=== PATIENT | female | born 1945 | race Caucasian/White ===

== ENCOUNTER → 2016-10-06 | Outpatient (CLI) | payer MEDICARE, BC ==
--- NOTE | 2016-10-06 15:10 | RADRPT ---
PROCEDURE: Right knee radiographs. CLINICAL INDICATION: Right knee pain. TECHNIQUE: Four views. Weight bearing. Frontal, lateral, oblique, and patellar view. COMPARISON: No prior studies are available for comparison. FINDINGS: There is no fracture or dislocation. There is a small joint effusion. There are degenerative changes with osteophytes arising from all 3 joint compartment margins. There is medial joint compartment narrowing, mild deformity, and subarticular sclerosis. The appearance i s worse than seen previously. There is no lytic or blastic lesion. There is no radiopaque foreign body. IMPRESSION: 1. Small joint effusion. 2. Moderate to severe degenerative change, worse than seen previously. 3. No other change from 06/08/2013. RPTAT: QQ .Jose Cruz Rangel MD, MD Date Time Electronically viewed and signed by .Jose Cruz Rangel MD, on 10/06/2016 15:10 .R/
== END | disposition home or self-care (01) ==
LOC: HKI 11:07
PROVIDERS: ATTEND Orthopaedic Surgery
DX: M25.561 Pain in right knee (principal); M17.11 Unilateral primary osteoarthritis, right knee
CPT/HCPCS: 73564; G0463

== ENCOUNTER → 2016-12-08 | Outpatient (CLI) | payer MEDICARE, BC ==
[~2016-12-08] MED LIST: ASPI325T32 PO; GLIM4TAB PO; LEVO25TA50 PO; METF500T4 PO; PANT40TA4 PO; PRAV40TA76 PO; PRED1TAB2 PO; PREG50CA PO; TRAM50TA2 PO
--- NOTE | 2016-12-13 16:58 | RADRPT ---
PROCEDURE: Limited x-ray of both lower extremities. CLINICAL INDICATION: Bilateral leg pain. TECHNIQUE: Single frontal view of both lower extremities was obtained from the hips to the calves. COMPARISON: None. FINDINGS: There are mild degenerative changes of both hips with osteophytes noted. There are moderate to anna re degenerative changes of the right knee with joint space narrowing, osteophytes, and subarticular sclerosis. There are mild degenerative changes of the left knee. IMPRESSION: 1. Degenerative changes of the hips and knees as described above. RPTAT: QQ .Jose Cruz Rangel MD, MD Date Time Electronically viewed and signed by .Jose Cruz Rangel MD, MD on 12/13/2016 16:57 .R/
== END | disposition home or self-care (01) ==
LOC: HKI 09:53
PROVIDERS: ATTEND Orthopaedic Surgery
DX: M17.11 Unilateral primary osteoarthritis, right knee (principal)
CPT/HCPCS: 77073; G0463

== ENCOUNTER 2016-12-14 10:13 | Inpatient (IN) | payer MEDICARE, BC ==
[2016-12-14] VITALS (25 sets, daily range): BP systolic 117–149; BP diastolic 50–79; PULSE 61–90; RESP 7–21; Ht 165.1 cm; Wt 75.0 kg
[~2016-12-14] VITALS: Ht 165.1 cm; Wt 75.0 kg
[~2016-12-14 10:13] MED LIST changes: -ASPI325T32 PO; +ETOMIDATE 20 MG INJ ONE; -GLIM4TAB PO; -LEVO25TA50 PO; -METF500T4 PO; -PANT40TA4 PO; -PRAV40TA76 PO; -PRED1TAB2 PO; -PREG50CA PO; +PROPOFOL 1000 MG INJ ONE; -TRAM50TA2 PO
[2016-12-14] MEDS ORDERED: GLIM4TAB PO (10:51)
[2016-12-14] MEDS ORDERED: LEVO25TA50 PO (10:51)
[2016-12-14] MEDS ORDERED: PRED1TAB2 PO (10:52)
[2016-12-14] MEDS ORDERED: METF500T4 PO (10:53)
[2016-12-14] MEDS ORDERED: PRAV40TA76 PO (10:54)
[2016-12-14] MEDS ORDERED: ONDANSETRON 4 MG INJ IV STA (11:22)
[2016-12-14] MEDS ORDERED: CEFAZOLIN 2GM/50 ML (PMX) 50 ML X1 BEFORE INCISION IVPB SCH (12:00)
[2016-12-14] MEDS ORDERED: PREGABALIN 300 MG PO X1 PO SCH (12:00)
[2016-12-14] MEDS ORDERED: TRANEXAMIC ACID 770 MG in SOD CHLORIDE 0.9% 92.3 ML IV SCH (12:00)
[2016-12-14] MEDS ORDERED: EXPAREL NOTE (BUPIVICAINE LIPOSOMAL) XX SCH (12:00)
[2016-12-14] MEDS ORDERED: oxyCODONE (CR) 10 MG TAB [oxyCONTIN] X1 DOSE PO SCH (12:00)
[2016-12-14] MEDS ORDERED: traMADOL 50 MG TAB X 1 DOSE PO SCH (12:00)
[2016-12-14] MEDS ORDERED: PAIN COCKTAIL-CEFUROXIME IRR SCH ×7 (12:00)
[2016-12-14] MEDS ORDERED: TRANEXAMIC ACID 770 MG in SOD CHLORIDE 0.9% 100 ML IVPB SCH (12:00)
[2016-12-14] MEDS ORDERED: BUPIVACAINE LIPOSOME/PF 266 MG/20 ML VIAL INFIL SCH (12:00)
[2016-12-14] MEDS ORDERED: CELECOXIB 400 MG PO X1 DOSE PO SCH (12:00)
[2016-12-14] MEDS ORDERED: CEFAZOLIN 1 GM INJ ONE (12:21)
[2016-12-14] MEDS ORDERED: NEOSTIGMINE 3 MG/3 ML SYRINGE ONE (12:21)
[2016-12-14] MEDS ORDERED: ROCURONIUM 50 MG INJ ONE (12:21)
[2016-12-14] MEDS ORDERED: GLYCOPYRROLATE 0.4 MG INJ ONE (12:21)
[2016-12-14] MEDS ORDERED: PROPOFOL 20 ML ONE (12:21)
[2016-12-14] MEDS ORDERED: DEXAMETHASONE 4 MG/ML 1 ML INJ ONE (12:22)
[2016-12-14] MEDS ORDERED: FENTAnyl 50 MCG/ML VIAL ONE (12:22)
[2016-12-14] MEDS ORDERED: MIDAZOLAM 1 MG/ML 2 ML INJ ONE (12:22)
[2016-12-14] MEDS ORDERED: ONDANSETRON 4 MG INJ ONE (12:22)
--- NOTE | 2016-12-14 12:59 | HPN ---
Date/Time of Note Date/Time of Note DATE: 12/14/16 TIME: 12:58 Interval H&P Admission Note Pt. seen H&P reviewed: No system changes No change from H&P by Dr. Claude Barrett on 12/02/16 EDMUNDO WRIGHT MD Dec 14, 2016 12:59
[2016-12-14] MEDS ORDERED: LACTATED RINGER'S 1,000 ML IV SCH (13:00)
[2016-12-14] MEDS ORDERED: VANCOMYCIN 1 GM INJ ONE (13:11)
[2016-12-14] MEDS ORDERED: POLYMYXIN B 500000 UNIT INJ ONE (13:11)
[2016-12-14] MEDS ORDERED: BACITRACIN 50000 UNITS INJ IRR ONE (14:11)
[2016-12-14] MEDS ORDERED: BACITRACIN 50000 UNITS INJ ONE (14:28)
--- NOTE | 2016-12-14 15:45 | OPR ---
Date/Time of Note Date/Time of Note DATE: 12/14/16 TIME: 15:43 Operative Report Free Text/Dictation Dictation # [id number] Procedure Date: Dec 14, 2016 Preoperative Diagnosis Right Knee OA Postoperative Diagnosis Same Operation Performed Right TKA Surgeon: EDMUNDO WRIGHT MD kindergarten teacher assistant: MINI MCCLOUD PA-C Anesthesia: general Anesthesiologist: Fermin Bolton M.D. Tourniquet Time: 52 minutes Estimated Blood Loss: 50 - 100 ml's Specimens Bone and soft tissue Tubes/Drains Hemovac c 1 Complications: None Pt Condition Post Procedure: stable Disposition: PACU EDMUNDO WRIGHT MD Dec 14, 2016 15:45
--- NOTE | 2016-12-14 15:47 | PN ---
Date/Time of Note Date/Time of Note DATE: 12/14/16 TIME: 15:45 Assessment/Plan Lines/Catheters IV Catheter Type (from Nrsg): Saline Lock Assessment/Plan Assessment/Plan Stable in PACU, s/p right TKA -continue Ancef -pain meds as needed -ASA/SCDs -diabetes to be managed by medicine team -OOB with PT -check AM labs -monitor drain -d/c saavedra in AM XR of the right knee is pending at this time Subjective 24 Hr Interval Summary Stable in PACU. Denies pain. Moving all extremities. Exam/Review of Systems Vital Signs Vitals Vital Signs Date Time Temp Pulse Resp B/P Pulse Ox O2 Delivery O2 Flow Rate FiO2 12/14/16 11:47 98.2 75 18 124/60 99 Room Air Exam Free Text/Dictation Hemovac: minimal Dressing dry Incision clean, dry, and intact without redness or drainage Thigh soft 5/5 Quadriceps, Tibialis Anterior, EHL, Gastroc, Soleus, Peroneals Normal sensation Palpable DT/PT, CR <2 sec No distal edema MINI MCCLOUD PA-C Dec 14, 2016 15:47
[2016-12-14] MEDS ORDERED: DIPHENHYDRAMINE 25 MG CAP PO PRN (16:00)
[2016-12-14] MEDS ORDERED: HYDROmorphONE 1 MG/ML SYG IV PRN (16:00)
[2016-12-14] MEDS ORDERED: BISACODYL 10 MG SUPP PR PRN (16:00)
[2016-12-14] MEDS ORDERED: NACL 0.9% 3 ML SYG IV SCH (16:00)
[2016-12-14] MEDS ORDERED: NA PHOSPHATE/BIPHOS 133 ML ENEMA PR PRN (16:00)
[2016-12-14] MEDS ORDERED: ONDANSETRON 4 MG INJ IV PRN ×2 (16:00→16:30)
[2016-12-14] MEDS: CEFAZOLIN 2 GM/50 ML (PMX) 50 ML IVPB SCH ×2 (16:11→23:57)
[2016-12-14 16:18] LABS: HEMATOCRIT 31.7 % (37.0-47.0)
[2016-12-14] MEDS: LACTATED RINGER'S 1,000 ML IV SCH ×2 (16:24→23:57)
[2016-12-14] MEDS ORDERED: ASPIRIN (EC) 325 MG TAB PO ONE (16:30)
[2016-12-14] MEDS ORDERED: OXYCODONE/ACETAMINOPHEN (5/325) TAB PO PRN ×2 (16:30)
[2016-12-14] MEDS ORDERED: FENTAnyl 50 MCG/ML VIAL IV PRN ×2 (16:30)
[2016-12-14] MEDS ORDERED: LABETALOL HCL 20MG INJ IV PRN (16:30)
[2016-12-14] MEDS ORDERED: MEPERIDINE 25 MG INJ IV PRN (16:30)
[2016-12-14] MEDS ORDERED: DIPHENHYDRAMINE 50 MG INJ IV PRN (16:30)
[2016-12-14] MEDS ORDERED: MIDAZOLAM 1 MG/ML 2 ML INJ IV PRN (16:30)
[2016-12-14] MEDS ORDERED: HYDROmorphONE (0.2 MG/ML) 10ML SYG IV PRN ×3 (16:30)
[2016-12-14] MEDS ORDERED: TRIMETHOBENZAMIDE 100 MG/ML VIAL IM PRN (16:30)
[2016-12-14] MEDS ORDERED: hydrALAzine 20 MG INJ IV PRN (16:30)
[2016-12-14] MEDS ORDERED: EPHEDrine SULFATE 50 MG/5 ML SYG IV PRN (16:30)
--- NOTE | 2016-12-14 16:32 | OPR ---
DATE OF OPERATION: 12/14/2016 PREOPERATIVE DIAGNOSIS: Right knee osteoarthritis. POSTOPERATIVE DIAGNOSIS: Right knee osteoarthritis. OPERATION PERFORMED: Right total knee arthroplasty. SURGEON: Edmundo Wright MD WATER TENDER: MAEGAN Shay COMPONENTS USED: DePuy Attune size 6 narrow femoral component, size 5 tibial baseplate, 5 mm polyet hylene insert and a 35 patellar button. ANESTHESIA: Spinal plus general endotracheal intubation plus periarticular injection. ANESTHESIOLOGIST: Dr. Bolton. TOURNIQUET TIME: 52 minutes. ESTIMATED BLOOD LOSS: 50 mL. INTRAVENOUS FLUIDS: Two liters crystalloid. SPECIMENS: Bone and soft tissue. DRAINS: Hemovac x1. COMPLICATIONS: None. DISPOSITION: Patient tolerated procedure well and was taken to the recovery room in stable [facility] n. INDICATIONS: The patient is a 71-year-old woman who has had progressive worsening pain in the right knee with radiographic evidence of severe osteoarthritis. She has failed nonsurgical means of olivia tment to control her pain including activity modifications, pain medications, intra-articular inject ions and ambulatory assist devices. Despite these measures, she has had worsening pain and I felt s he would benefit from a total knee arthroplasty. The risks, benefits, and alternatives of the procedure were explained in detail to the patient. I e xplained the risks of the surgery to include but not be limited to, bleeding and possible need for b lood transfusion; infection; pain; stiffness; neurovascular injury with possible numbness, weakness, and/or paralysis anywhere from the knee down to the toes; fracture; instability; dislocation; wear and/or loosening of the prosthesis and possible need for future revision; blood clots; pulmonary emb olism; and anesthetic complications such as heart attack, stroke, GI bleed, pneumonia, and/or . Ample time was allowed for the patient to ask questions, all of which were addressed and answered. The patient understood the risks involved and wished to proceed. Informed consent was signed prior to the procedure. PROCEDURE: The patient's right knee was initialed with a marking pen in the preoperative area to id entify the correct operative site. The patient was brought to the operating room and transferred [facility] to the operating table where a spinal anesthetic was administered. The patien t was then anesthetized and intubated. A Branham catheter was placed. A timeout was performed to con firm that the right leg was the correct operative site. The patient was given 2 g of Ancef within o ne hour prior to the procedure. A tourniquet was placed on the operative proximal thigh. The opera tive knee and lower extremity were prepped and draped in the usual sterile fashion. The operative l ower extremity was elevated and exsanguinated with an Esmarch tourniquet. The proximal thigh tourni quet was inflated to 300 mmHg. The knee was flexed. A midline incision was made and carried down through the subcutaneous tissue a nd fat with sharp dissection. Limited medial and lateral flaps were raised. A median parapatellar arthrotomy approach was performed. Synovial fluid was normal in color and consistency. The patella was everted and the knee flexed. There were severe tricompartmental osteoarthritic changes noted. A medial release was performed at the joint line to the midcoronal plane. The ACL and PCL and remnan ts of the menisci were excised. The stepped drill was used to open up the femoral canal which was i rrigated and sucked dry. The intramedullary guide alden was passed up the femur, and the distal cutti ng block was pinned into place for a 6 degree valgus cut, taking 10 mm of bone off distally. The osc illating saw was used to make the cut. The tibia was subluxed anteriorly. The tibial cutoff jig was placed over the center of the talus di stally and over the junction of the medial and middle third of the tibial tubercle proximally. The g uide was pinned into place and the oscillating saw was used to make the cut. The tibia was sized. The extension gap was checked and accommodated a 5 mm spacer block with the knee in full extension. There was no varus or valgus instability. At this point, the femur was sized with the posterior referencing guide. Two holes were drilled in 3 degrees of external rotation. The two holes were in line with the transepicondylar axis, perpendi cular to Aziza's line, and in line with the tibial cutoff jig brought up with the knee flexed 90 degrees and tensed with 2 lamina spreaders, suggesting the femoral rotation was correct. The four- in-one cutting block was pinned into place. The anterior and posterior cuts and chamfer cuts were m charity with the oscillating saw. The flexion gap was checked and accommodated the 5 mm spacer block at 90 degrees. There was no varus or valgus instability, suggesting the flexion and extension gaps we re now equal. The central box was cut out on the femur. The tibia was drilled and punched in proper rotation. Tri al components were placed into position with a trial insert. The patella was cut from 22 mm down to 13 mm in size. Three holes were drilled and the trial button placed in position. With all the tri als now in place, the knee was taken through range of motion and came to full extension as evidenced by the fact that with the foot on my abdomen and axial loading, there was no tendency for the knee to flex. The knee was able to be flexed to 125 degrees with good patellar tracking with no lateral tilt or subluxation. At this point, I was satisfied with the overall range of motion, stability, an d patellar tracking. The trials were removed. The real components were opened. Two bags of cement were mixed, one with and one without premixed antibiotic. The knee was irrigated with antibiotic saline and sucked dry. Once the cement was in a doughy stage, the real components were cemented into place. The knee was held in full extension, and the patellar component was held with a patellar clamp. All excess cemen t was removed with curettes. As the cement was hardening, the synovial/capsular layer was infiltrat ed with a mixture of 150 mg of 0.5% Bupivacaine, 8 mg of Duramorph, 300 mcg of epinephrine, 30 mg of Toradol, 100 mcg of clonidine, 750 mg of cefuroxime and 86 mL of normal saline, followed by an inje ction of 266 mg of liposomal Bupivacaine. A Hemovac drain was placed in the deep portion of the wound and brought out the anterolateral thigh. Once the cement was completely hardened, the trial liner was removed, and the real insert was open ed. The tourniquet was let down, and there was good hemostasis. The knee was then irrigated with a mixture of betadine/saline and then antibiotic saline with pulsatile lavage. The real insert was impacted into the tibia and reduced onto to the femur. The arthrotomy was closed with a few interrupted #1 Ethibond in a [id number] fashion, and then closed in a watertight fashion with a running #2 Stratafix suture. Knee flexion was checked against gravity and came to 125 degrees. The subcutaneous layer was irrigated and closed with 2-0 Statafix , and then 3-0 Vicryl and then tea on the skin. The wound was covered with an occlusive dressin g, and secured with cast padding and a bias dressing. The drain was secured with 3-0 nylon. The sponge and needle counts were correct at the end of the case. The patient was then awakened, ex tubated, and taken to the recovery room in stable condition. Dictated By: EDMUNDO WRIGHT MD EZ/NTS Conf#: [id number] DID#: [id number]
[2016-12-14 16:53] LABS: CALCIUM 9.4 mg/dl (8.4-10.2); CREATININE 0.89 mg/dl (0.44-1.00); POTASSIUM 4.2 mmol/L (3.5-5.1)
--- NOTE | 2016-12-14 16:53 | RADRPT ---
PROCEDURE: Right knee x-ray CLINICAL INDICATION: Postoperative imaging. TECHNIQUE: AP, lateral and oblique views of the knee were obtained. COMPARISON: No. FINDINGS: A drainage tube is identified following placement of a total right knee arthroplasty with skin stapl es ventral to the knee. There are artifacts from and external bandage around the knee. No acute octaviano ny fracture is identified. IMPRESSION: 1. Status post total right knee arthroplasty with postoperative change. RPTAT:AAJJ Physician Chaim Date Time Electronically viewed and signed by Carrillo Francois Physician on 12/14/2016 16:53 DL/
[2016-12-14] MEDS: PANTOPRAZOLE (EC) 40 MG TAB PO SCH (17:39)
[2016-12-14] MEDS: traMADol 50 MG TAB PO SCH (17:40)
--- NOTE | 2016-12-14 17:47 | CONS ---
DATE OF ADMISSION: 12/14/2016 DATE OF CONSULTATION: 12/14/2016 Thank you very much, Dr. Tarango, for allowing me to evaluate this 71-year-old female who just underw ent right total knee replacement. HISTORICAL EVENTS: As you well know, this patient has had progressive disabling pain involving her right knee and elected to proceed with surgical intervention. Postoperatively, in recovery, she is comfortable without cough, wheezing, shortness of breath, nausea, vomiting, abdominal or chest pain. PAST MEDICAL HISTORY: Includes: 1. Recent treatment for urinary tract infection with Levaquin. 2. History of giant cell arteritis with polymyalgia rheumatica. 3. History of diabetes. 4. Osteoarthritis. 5. History of pneumonia. 6. History of colon polyps. SOCIAL HISTORY: She is a . Does not smoke. FAMILY HISTORY: To be reviewed later. PAST MEDICAL HISTORY: Includes hyperlipidemia. MEDICATIONS: 1. Pravachol 40 mg per day. 2. Metformin 500 mg b.i.d. 3. Glimepiride 4 mg per day. 4. Tylenol with codeine. 5. Folic acid 1 mg per day. 6. Methotrexate 2.5 mg on . 7. Prednisone 4 tablets per day. ALLERGIES: NONE. PHYSICAL EXAMINATION: GENERAL: Reveals a comfortable-appearing female in no acute distress. VITAL SIGNS: BP 122/80, pulse 70, respirations are 20. She was afebrile. EYES: Extraocular muscles were full. NOSE, MOUTH, AND THROAT: Normal. NECK: Supple. There was no jugular venous distention, thyroid enlargement or adenopathy. Carotids 2+. LUNGS: Clear. HEART: Rhythm regular, no murmur. No third or fourth sound. ABDOMEN: Nontender. Liver and spleen were not palpable. No masses or tenderness were noted. EXTREMITIES: No edema. NEUROLOGIC: No lateralizing motor weakness. IMPRESSION: 1. Stable postop right knee replacement. 2. History of giant cell arteritis, having been maintained on prednisone. She did receive Decadron 8 mg perioperatively but will need to continue prednisone throughout. 3. History of diabetes. We will continue oral agents and monitor sugars and use a short-acting ins ulin before each meal. 4. We will evaluate daily for signs and symptoms of thromboembolic disease despite appropriate deep venous thrombosis prophylaxis. 5. History of urinary tract infection. Will obtain followup UA and culture. Dictated By: REDD TELLO MD MR/NTS Conf#: [id number] DID#: [id number]
[2016-12-14] MEDS: FENTAnyl 50 MCG/ML VIAL IV PRN ×4 (17:50→18:44)
[2016-12-14] MEDS ORDERED: TRANEXAMIC ACID 750 MG in SOD CHLORIDE 0.9% 100 ML IVPB ONE ×2 (19:00→22:00)
[2016-12-14] MEDS: DOCUSATE SODIUM 100 MG CAP PO SCH (20:33)
[2016-12-14] MEDS: PREGABALIN 50 MG CAP PO SCH (20:33)
[2016-12-14] MEDS: ATORVASTATIN 10 MG TAB PO SCH (20:33)
[2016-12-14] MEDS: INSULIN ASPART [NOVOLOG] 3 ML PEN SC SCH (21:40)
[2016-12-15] MEDS: traMADol 50 MG TAB PO SCH ×4 (00:09→17:21)
[2016-12-15 05:08] LABS: HEMATOCRIT 32.9 % (37.0-47.0); HEMOGLOBIN 10.5 g/dl (12.0-16.0)
[2016-12-15] MEDS: LEVOTHYROXINE 25 MCG TAB PO SCH (06:15)
[2016-12-15] MEDS: PANTOPRAZOLE (EC) 40 MG TAB PO SCH ×2 (06:16→17:21)
[2016-12-15 06:35] LABS: ADD UMIC YES; UR BILIRUBIN (Dip) NEGATIVE (NEGATIVE); UR BLOOD (Dip) 2+ (NEGATIVE); UR CLARITY CLEAR (CLEAR); UR COLOR LT. YELLOW (YELLOW); UR GLUCOSE (Dip) NEGATIVE (NEGATIVE); UR KETONES (Dip) NEGATIVE (NEGATIVE); UR LEUKOCYTE ESTERASE (Dip) TRACE (NEGATIVE); UR NITRITE (Dip) NEGATIVE (NEGATIVE); UR TOTAL PROTEIN (Dip) NEGATIVE (NEGATIVE); UR UROBILINOGEN (Dip) 0.2 E.U./dL (0.1-1.0)
[2016-12-15 06:41] LABS: MAGNESIUM 1.8 mg/dl (1.7-2.5)
[2016-12-15 06:43] LABS: CALCIUM 9.5 mg/dl (8.4-10.2); CREATININE 0.89 mg/dl (0.44-1.00); POTASSIUM 4.9 mmol/L (3.5-5.1)
[2016-12-15] MEDS: metFORMIN 500 MG TAB PO SCH ×3 (08:00→17:21)
[2016-12-15 08:10] VITALS: BP 119/59; RESP 18
--- NOTE | 2016-12-15 08:18 | CONS ---
Date/Time of Note Date/Time of Note DATE: 12/15/16 TIME: 08:17 Assessment/Plan Assessment/Plan Additional Assessment/Plan 1. Doing well post op right knee replacement. 2. DM, sugar control is acceptable. 3. Labs rev Consultation Date/Type/Reason Admit Date/Time Dec 14, 2016 at 10:13 Initial Consult Date Detailed Summary Respiratory: No cough, No shortness of breath Cardiovascular: No chest pain Gastrointestinal: no complaints Genitourinary: other (saavedra in place) Musculoskeletal: bone/joint pain (mild right knee pain) Exam/Review of Systems Vital Signs Vitals Vital Signs Date Time Temp Pulse Resp B/P Pulse Ox O2 Delivery O2 Flow Rate FiO2 12/15/16 08:10 98.0 52 18 119/59 98 12/14/16 22:50 Nasal Cannula 3.0 Intake and Output 12/14/16 12/14/16 12/15/16 15:00 23:00 07:00 Intake Total 2000 ml 575.0 ml 2130 ml Output Total 20 ml 915 ml 1520 ml Balance 1980 ml -340.0 ml 610 ml Exam Neck: No jvd Respiratory: clear to auscultation Gastrointestinal: soft Extremities: No edema (and no calf tend) Results Result Diagram: 12/15/16 0430 12/15/16 0430 Results 24 hrs Laboratory Tests Test 12/14/16 11:36 12/14/16 16:07 12/14/16 16:26 12/14/16 20:37 Bedside Glucose 102 141 191 Hemoglobin 10.0 L Hematocrit 31.7 L Sodium Level 140 Potassium Level 4.2 Chloride Level 106 Carbon Dioxide Level 25 Anion Gap 13 Blood Urea Nitrogen 14 Creatinine 0.89 Glucose Level 132 Calcium Level 9.4 Test 12/14/16 21:19 12/15/16 04:15 12/15/16 04:30 12/15/16 05:37 Bedside Glucose 189 Urine Color LT. YELLOW Urine Clarity CLEAR Urine pH 6.0 Urine Specific [place] <=1.005 L Urine Ketones NEGATIVE Urine Nitrite NEGATIVE Urine Bilirubin NEGATIVE Urine Urobilinogen 0.2 E.U./dL Urine Leukocyte Esterase TRACE H Urine Microscopic RBC 2-5 Urine Microscopic WBC 0-2 Urine Hemoglobin 2+ H Urine Glucose NEGATIVE Urine Total Protein NEGATIVE Hemoglobin 10.5 L Hematocrit 32.9 L Sodium Level 140 Potassium Level 4.9 Chloride Level 105 Carbon Dioxide Level 25 Anion Gap 15 Blood Urea Nitrogen 15 Creatinine 0.89 Glucose Level 185 Calcium Level 9.5 Phosphorus Level 5.0 H Magnesium Level 1.8 Lab Scanned Report REFERENCE LAB Medications Medications Current Medications Miscellaneous Information 1 ea NOTE XX ; Start 12/14/16 at 12:00; Stop 12/18/16 at 11:59 Prednisone (Prednisone) 3 mg DAILY PO ; Start 12/15/16 at 09:00 Atorvastatin Calcium 10 mg 10 mg DAILY@21 PO Last administered on 12/14/16 20: 33; Admin Dose 10 MG; Start 12/14/16 at 21:00 Lactated Ringer's (Lr) 1,000 ml @ 125 mls/hr Q8H IV Last administered on 23:57; Admin Dose 125 MLS/HR; Start 12/14/16 at 16:00 Tramadol HCl (Ultram) 50 mg Q6 PO Last administered on 12/15/16 06:16; Admin Dose 50 MG; Start 12/14/16 at 18:00; Stop 12/17/16 at 17:59 Acetaminophen/ Hydrocodone Bitart (Enderlin (5/325)) 1 tab Q4H PRN PO PAIN LEVEL 1 -3; Start 12/14/16 at 16:00 Acetaminophen/ Hydrocodone Bitart (Enderlin (5/325)) 2 tab Q4H PRN PO PAIN LEVEL 4 -7; Start 12/14/16 at 16:00 Hydromorphone HCl 1 mg 1 mg Q3H PRN IV PAIN LEVEL 8-10; Start 12/14/16 at 16:00 Cefazolin Sodium/ Dextrose (Ancef 2 Gm/50 ml (Pmx)) 50 ml @ 100 mls/hr Q8H IVPB Last administered on 12/14/16 23:57; Admin Dose 100 MLS/HR; Start at 16:00; Stop 12/15/16 at 08:29 Ondansetron HCl (Zofran Inj) 4 mg Q6H PRN IV NAUSEA AND/OR VOMITING; Start at 16:00 Bisacodyl (Dulcolax Supp) 10 mg Q12H PRN [place] CONSTIPATION; Start 12/14/16 at 16: 00 Magnesium Hydroxide (Milk Of Mag) 30 ml BID PRN PO CONSTIPATION; Start at 16:00 Sodium Biphosphate/ Sodium Phosphate (Fleet Enema) 133 ml DAILY PRN [place] CONSTIPATION; Start 12/14/16 at 16:00 Docusate Sodium (Colace) 100 mg BID PO Last administered on 12/14/16 20:33; Admin Dose 100 MG; Start 12/14/16 at 21:00 Diphenhydramine HCl (Benadryl) 25 mg Q6H PRN PO PRURITUS; Start 12/14/16 at 16: 00 Aspirin (Ecotrin) 325 mg BID PO ; Start 12/15/16 at 09:00 Pantoprazole (Protonix Tab) 40 mg BID@06,18 PO Last administered on 12/15/16 06:16; Admin Dose 40 MG; Start 12/14/16 at 18:00 Pregabalin (Lyrica) 50 mg BID PO Last administered on 12/14/16 20:33; Admin Dose 50 MG; Start 12/14/16 at 21:00 REDD TELLO MD Dec 15, 2016 08:18
--- NOTE | 2016-12-15 08:55 | PN ---
Date/Time of Note Date/Time of Note DATE: 12/15/16 TIME: 08:54 Assessment/Plan Lines/Catheters IV Catheter Type (from Nrsg): Peripheral IV Branham in Place (from Nrsg): Yes Assessment/Plan Assessment/Plan Stable POD #1, s/p right TKA -d/c abx -pain meds as needed -ASA/SCDs -OOB with PT -check AM labs -drain removed -d/c planning. Will go to [facility] upon discharge Subjective 24 Hr Interval Summary No acute overnight events. Denies any pain. Did not start PT yet. H&H stable. VSS, afebrile. Will plan to go to [facility] tomorrow. Exam/Review of Systems Vital Signs Vitals Vital Signs Date Time Temp Pulse Resp B/P Pulse Ox O2 Delivery O2 Flow Rate FiO2 12/15/16 08:10 98.0 52 18 119/59 98 12/14/16 22:50 Nasal Cannula 3.0 Intake and Output 12/14/16 12/14/16 12/15/16 15:00 23:00 07:00 Intake Total 2000 ml 575.0 ml 2130 ml Output Total 20 ml 915 ml 1520 ml Balance 1980 ml -340.0 ml 610 ml Exam Free Text/Dictation Hemovac: 180cc Dressing dry Incision clean, dry, and intact without redness or drainage 5/5 Quadriceps, Tibialis Anterior, EHL, Gastroc, Soleus, Peroneals Normal sensation Palpable DT/PT, CR <2 sec No distal edema Results Result Diagram: 12/15/1642912/15/16429 MINI MCCLOUD PA-C Dec 15, 2016 08:55
[2016-12-15] MEDS: CEFAZOLIN 2 GM/50 ML (PMX) 50 ML IVPB SCH (08:58)
[2016-12-15] MEDS: LACTATED RINGER'S 1,000 ML IV SCH ×3 (08:58→23:35)
[2016-12-15] MEDS: GLIMEPIRIDE 4 MG TAB PO SCH (08:59)
[2016-12-15] MEDS: PREGABALIN 50 MG CAP PO SCH ×2 (09:00→20:19)
[2016-12-15] MEDS: DOCUSATE SODIUM 100 MG CAP PO SCH ×2 (09:00→20:19)
[2016-12-15] MEDS: ASPIRIN (EC) 325 MG TAB PO SCH ×2 (09:00→20:19)
[2016-12-15] MEDS: predniSONE 1 MG TAB PO SCH (09:02)
[2016-12-15] MEDS: INSULIN ASPART [NOVOLOG] 3 ML PEN SC SCH ×3 (09:09→17:20)
[2016-12-15] MEDS: HYDROCODONE/APAP (5/325) TAB PO PRN (13:46)
--- NOTE | 2016-12-15 15:16 | PDOCDIS ---
Discharge Instructions DIAGNOSIS Discharge Diagnosis: s/p right TKA CONDITION Patient Condition: Good HOME CARE INSTRUCTIONS: Diet Instructions: RegularSpecial Diet: CARB CONTROLLED ACTIVITY: Activity Restrictions: Slowly Increase Activity Rest between Activity Avoid heavy lifting Do not operate Machinery Do not operate Power Tool Avoid Heavy Housework Keep Limb Elevated Bathing Restrictions: Shower FOLLOW UP/APPOINTMENTS Appointments follow up in the office on 12/24/16 OTHER ORDERS: Other Orders: S/P TKA Physical Therapy: Three times per week at home x 2 weeks Daily in Rehab/SNF WB STATUS: WBAT 1. Strengthening exercises for both upper and un-operated lower extremities. 2. Gait training with front wheeled walker 3. Active range of motion exercises to operative knee. 4. When not working on knee range of motion exercises, distal towel roll under operative ankle/distal calf to promote full extension. 5. DO NOT PUT ANYTHING BEHIND OPERATIVE KNEE!!! 6. Quadriceps and hamstring strengthening. 7. May switch to cane in contra lateral hand 6 weeks after surgery. 8. Physical Therapy can open case if nursing is not available. 9. Use Ice Machine as instructed from date of surgery while at rest 3X/day. 10. Patient requires mobile SCDs to reduce risk of developing DVT following TKA. Patient will use the mobile SCDs for 30 days postoperatively. Bathing assistance by home health aide twice weekly if Medicare patient. Occupational Therapy: Evaluation for assistive devices and ADL training. Wound Care: Keep incision dry & covered with Tegaderm until first visit with Dr. Tarango Anticoagulation Orders: Enteric Coated Aspirin 325 mg po bid x 6 weeks from date of surgery Follow-up:Call for an appointment with Dr. Tarango in 1 week after discharged from hospital at DME Orders: FWAna Cristina, 3-in-1 Commode, Polar ice machine, Mobile SCDs MINI MCCLOUD PA-C Dec 15, 2016 15:16
[2016-12-15] MEDS ORDERED: PANT40TA4 PO (15:18)
[2016-12-15] MEDS ORDERED: ASPI325T32 PO (15:18)
[2016-12-15] MEDS ORDERED: PREG50CA PO (15:18)
[2016-12-15] MEDS ORDERED: TRAM50TA2 PO (15:18)
[2016-12-15] MEDS: MAGNESIUM HYDROXIDE 30ML CUP PO PRN (17:21)
[2016-12-15] MEDS: ATORVASTATIN 10 MG TAB PO SCH (20:19)
[2016-12-15 21:31] VITALS: BP 145/64; RESP 20
[2016-12-16 05:17] LABS: HEMATOCRIT 27.5 % (37.0-47.0); HEMOGLOBIN 9.1 g/dl (12.0-16.0)
[2016-12-16 05:51] LABS: CALCIUM 9.4 mg/dl (8.4-10.2); CREATININE 0.96 mg/dl (0.44-1.00); POTASSIUM 4.1 mmol/L (3.5-5.1)
[2016-12-16] MEDS: traMADol 50 MG TAB PO SCH ×4 (06:00→17:46)
[2016-12-16] MEDS: LEVOTHYROXINE 25 MCG TAB PO SCH (06:21)
[2016-12-16] MEDS: PANTOPRAZOLE (EC) 40 MG TAB PO SCH ×2 (06:21→17:46)
[2016-12-16] MEDS: HYDROCODONE/APAP (5/325) TAB PO PRN ×3 (06:21→20:18)
[2016-12-16] MEDS ORDERED: GLUCAGON 1 MG INJ IM PRN (06:30)
[2016-12-16] MEDS ORDERED: GLUCOSE GEL 15 GRAM TUBE BUCCAL PRN (06:30)
[2016-12-16] MEDS ORDERED: DEXTROSE 50% 50 ML SYRINGE IV PRN ×2 (06:30)
[2016-12-16] MEDS ORDERED: GLUCOSE GEL 15 GRAM TUBE PO PRN ×2 (06:30)
[2016-12-16] MEDS: LACTATED RINGER'S 1,000 ML IV SCH ×2 (08:00→14:45)
[2016-12-16 08:04] VITALS: BP 106/64; RESP 21
[2016-12-16] MEDS: INSULIN ASPART [NOVOLOG] 3 ML PEN SC SCH ×3 (09:00→17:25)
--- NOTE | 2016-12-16 09:04 | PN ---
Date/Time of Note Date/Time of Note DATE: 12/16/16 TIME: 09:02 Assessment/Plan Lines/Catheters IV Catheter Type (from Nrsg): Saline Lock Branham in Place (from Nrsg): No Assessment/Plan Assessment/Plan Stable POD #2, s/p right TKA -pain meds as needed -ASA/SCDs -OOB with PT -check AM labs -dressing changed -tentative plan to transfer to [facility] tomorrow Subjective 24 Hr Interval Summary No acute overnight events. Having more pain today. Progressing with PT. VSS, afebrile. Will plan to transfer to [facility] tomorrow. Exam/Review of Systems Vital Signs Vitals Vital Signs Date Time Temp Pulse Resp B/P Pulse Ox O2 Delivery O2 Flow Rate FiO2 12/16/16 08:04 98.0 64 21 106/64 96 12/15/16 09:00 Nasal Cannula 2.0 Intake and Output 12/15/16 12/15/16 12/16/16 15:00 23:00 07:00 Intake Total 290 ml 620 ml 400 ml Output Total 1500 ml 1100 ml Balance 290 ml -880 ml -700 ml Exam Free Text/Dictation Dressing dry Incision clean, dry, and intact without redness or drainage Thigh soft 5/5 Quadriceps, Tibialis Anterior, EHL, Gastroc, Soleus, Peroneals Normal sensation Palpable DT/PT, CR <2 sec No distal edema Results Result Diagram: 12/16/1641912/16/16419 MINI MCCLOUD PA-C Dec 16, 2016 09:04
[2016-12-16] MEDS: PREGABALIN 50 MG CAP PO SCH ×2 (09:20→21:15)
[2016-12-16] MEDS: DOCUSATE SODIUM 100 MG CAP PO SCH ×2 (09:20→21:15)
[2016-12-16] MEDS: ASPIRIN (EC) 325 MG TAB PO SCH ×2 (09:21→21:15)
[2016-12-16] MEDS: predniSONE 1 MG TAB PO SCH (09:21)
[2016-12-16] MEDS: GLIMEPIRIDE 4 MG TAB PO SCH (09:22)
--- NOTE | 2016-12-16 11:39 | CONS ---
Date/Time of Note Date/Time of Note DATE: 12/16/16 TIME: 11:37 Assessment/Plan Assessment/Plan Additional Assessment/Plan 1. Doing well post op right knee replacement. 2. Anemia, sl inc, will check iron studies 3. DM, sugars have been low, will stop glimepiride Consultation Date/Type/Reason Admit Date/Time Dec 14, 2016 at 10:13 Detailed Summary Respiratory: No cough, No shortness of breath Cardiovascular: No chest pain Gastrointestinal: no complaints Genitourinary: no complaints Musculoskeletal: bone/joint pain (mod right knee pain) Exam/Review of Systems Vital Signs Vitals Vital Signs Date Time Temp Pulse Resp B/P Pulse Ox O2 Delivery O2 Flow Rate FiO2 12/16/16 08:04 98.0 64 21 106/64 96 12/15/16 09:00 Nasal Cannula 2.0 Intake and Output 12/15/16 12/15/16 12/16/16 15:00 23:00 07:00 Intake Total 290 ml 620 ml 400 ml Output Total 1500 ml 1100 ml Balance 290 ml -880 ml -700 ml Exam Neck: No jvd Respiratory: clear to auscultation Cardiovascular: regular rate and rhythm Gastrointestinal: soft Extremities: No edema (and no calf tend bilat) Results Result Diagram: 12/16/16 0420 12/16/16 0420 Results 24 hrs Laboratory Tests Test 12/15/16 12:38 12/15/16 17:20 12/15/16 20:11 12/16/16 04:20 Bedside Glucose 96 71 87 Hemoglobin 9.1 L Hematocrit 27.5 L Sodium Level 139 Potassium Level 4.1 Chloride Level 104 Carbon Dioxide Level 32 H Anion Gap 7 #L Blood Urea Nitrogen 20 Creatinine 0.96 Glucose Level 82 # Calcium Level 9.4 Test 12/16/16 08:23 12/16/16 09:16 Bedside Glucose 88 79 Medications Medications Current Medications Miscellaneous Information 1 ea NOTE XX ; Start 12/14/16 at 12:00; Stop 12/18/16 at 11:59 Prednisone (Prednisone) 3 mg DAILY PO Last administered on 12/16/16 09:21; Admin Dose 3 MG; Start 12/15/16 at 09:00 Atorvastatin Calcium 10 mg 10 mg DAILY@21 PO Last administered on 12/15/16 20: 19; Admin Dose 10 MG; Start 12/14/16 at 21:00 Lactated Ringer's (Lr) 1,000 ml @ 125 mls/hr Q8H IV Last administered on 08:58; Admin Dose 125 MLS/HR; Start 12/14/16 at 16:00 Tramadol HCl (Ultram) 50 mg Q6 PO Last administered on 12/15/16 17:21; Admin Dose 50 MG; Start 12/14/16 at 18:00; Stop 12/17/16 at 17:59 Acetaminophen/ Hydrocodone Bitart ([place] (5/325)) 1 tab Q4H PRN PO PAIN LEVEL 1 -3 Last administered on 12/15/16 13:46; Admin Dose 1 TAB; Start 12/14/16 at 16: 00 Acetaminophen/ Hydrocodone Bitart ([place] (5/325)) 2 tab Q4H PRN PO PAIN LEVEL 4 -7 Last administered on 12/16/16 06:21; Admin Dose 2 TAB; Start 12/14/16 at 16: 00 Hydromorphone HCl (Dilaudid) 1 mg Q3H PRN IV PAIN LEVEL 8-10; Start 12/14/16 at 16:00 Ondansetron HCl (Zofran Inj) 4 mg Q6H PRN IV NAUSEA AND/OR VOMITING; Start at 16:00 Bisacodyl (Dulcolax Supp) 10 mg Q12H PRN [place] CONSTIPATION; Start 12/14/16 at 16: 00 Magnesium Hydroxide (Milk Of Mag) 30 ml BID PRN PO CONSTIPATION Last administered on 12/15/16 17:21; Admin Dose 30 ML; Start 12/14/16 at 16:00 Sodium Biphosphate/ Sodium Phosphate (Fleet Enema) 133 ml DAILY PRN [place] CONSTIPATION; Start 12/14/16 at 16:00 Docusate Sodium (Colace) 100 mg BID PO Last administered on 12/16/16 09:20; Admin Dose 100 MG; Start 12/14/16 at 21:00 Diphenhydramine HCl (Benadryl) 25 mg Q6H PRN PO PRURITUS; Start 12/14/16 at 16: 00 Aspirin (Ecotrin) 325 mg BID PO Last administered on 12/16/16 09:21; Admin Dose 325 MG; Start 12/15/16 at 09:00 Pantoprazole (Protonix Tab) 40 mg BID@,18 PO Last administered on 12/16/16 06:21; Admin Dose 40 MG; Start 12/14/16 at 18:00 Pregabalin (Lyrica) 50 mg BID PO Last administered on 12/16/16 09:20; Admin Dose 50 MG; Start 12/14/16 at 21:00 Miscellaneous Information 1 ea NOTE XX ; Start 12/16/16 at 06:30 Glucose (Glutose) 15 gm Q15M PRN PO DECREASED GLUCOSE; Start 12/16/16 at 06:30 Glucose (Glutose) 22.5 gm Q15M PRN PO DECREASED GLUCOSE; Start 12/16/16 at 06: 30 Dextrose (D50w Syringe) 25 ml Q15M PRN IV DECREASED GLUCOSE; Start 12/16/16 at 06:30 Dextrose (D50w Syringe) 50 ml Q15M PRN IV DECREASED GLUCOSE; Start 12/16/16 at 06:30 Glucagon (Glucagen) 1 mg Q15M PRN IM DECREASED GLUCOSE; Start 12/16/16 at 06:30 Glucose (Glutose) 15 gm Q15M PRN BUCCAL DECREASED GLUCOSE; Start 12/16/16 at 06 :30 REDD TELLO MD Dec 16, 2016 11:39
[2016-12-16] MEDS: metFORMIN 500 MG TAB PO SCH ×2 (12:43→17:46)
[2016-12-16 20:14] VITALS: BP 123/60; RESP 20
[2016-12-16] MEDS: ATORVASTATIN 10 MG TAB PO SCH (21:15)
[2016-12-16] MEDS: MAGNESIUM HYDROXIDE 30ML CUP PO PRN (21:15)
[2016-12-16] MEDS ORDERED: VITAMIN A & D 5 GM OINT PACKET TOP ONE (21:17)
[2016-12-17 05:31] LABS: HEMATOCRIT 28.3 % (37.0-47.0); HEMOGLOBIN 9.2 g/dl (12.0-16.0)
[2016-12-17 05:53] LABS: IRON 17 ug/dl (35-150)
[2016-12-17] MEDS: LEVOTHYROXINE 25 MCG TAB PO SCH (05:54)
[2016-12-17] MEDS: PANTOPRAZOLE (EC) 40 MG TAB PO SCH (05:54)
[2016-12-17] MEDS: traMADol 50 MG TAB PO SCH ×3 (05:55→11:42)
[2016-12-17 05:58] LABS: CALCIUM 9.1 mg/dl (8.4-10.2); CREATININE 1.01 mg/dl (0.44-1.00)
[2016-12-17 06:02] LABS: TOTAL IRON BINDING CAPACITY 209 ug/dl (241-421)
[2016-12-17] MEDS: HYDROCODONE/APAP (5/325) TAB PO PRN ×2 (06:50→13:09)
[2016-12-17 06:59] VITALS: BP 124/59; RESP 20
[2016-12-17] MEDS: INSULIN ASPART [NOVOLOG] 3 ML PEN SC SCH ×2 (07:20→11:10)
[2016-12-17] MEDS: LACTATED RINGER'S 1,000 ML IV SCH ×2 (08:00)
[2016-12-17] MEDS: DOCUSATE SODIUM 100 MG CAP PO SCH (08:52)
[2016-12-17] MEDS: ASPIRIN (EC) 325 MG TAB PO SCH (08:52)
[2016-12-17] MEDS: PREGABALIN 50 MG CAP PO SCH (08:53)
[2016-12-17] MEDS: predniSONE 1 MG TAB PO SCH (08:53)
--- NOTE | 2016-12-17 08:56 | PN ---
Date/Time of Note Date/Time of Note DATE: 12/17/16 TIME: 08:54 Assessment/Plan Lines/Catheters IV Catheter Type (from Nrsg): [place] in Place (from Nrsg): No Assessment/Plan Assessment/Plan Stable POD #3, s/p right TKA -pain meds as needed -ASA/SCDs -OOB with PT -dressing changed -transfer to [facility] today -follow up in the office in 1 week Subjective 24 Hr Interval Summary No acute overnights events. Having only mild pain. VSS, afebrile. Will plan to go to [facility] today. Exam/Review of Systems Vital Signs Vitals Vital Signs Date Time Temp Pulse Resp B/P Pulse Ox O2 Delivery O2 Flow Rate FiO2 12/17/16 06:59 98.0 72 20 124/59 98 12/15/16 09:00 Nasal Cannula 2.0 Intake and Output 12/16/16 12/16/16 12/17/16 15:00 23:00 07:00 Intake Total 1300 ml 500 ml Balance 1300 ml 500 ml Exam Free Text/Dictation Dressing dry Incision clean, dry, and intact without redness or drainage Thigh soft 5/5 Quadriceps, Tibialis Anterior, EHL, Gastroc, Soleus, Peroneals Normal sensation Palpable DT/PT, CR <2 sec No distal edema Results Result Diagram: 12/17/16 0435 12/17/16 0435 MINI MCCLOUD PA-C Dec 17, 2016 08:56
--- NOTE | 2016-12-17 09:56 | CONS ---
Date/Time of Note Date/Time of Note DATE: 12/17/16 TIME: 09:51 Assessment/Plan Assessment/Plan Chief Complaint/Hosp Course 1. Patient is now 3 days postop a left total knee arthroplasty. She is doing well. 2. Diabetes mellitus. 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 As her prednisone has been tapered her diabetes medication has been decreased. She had a low blood sugar of 53 this morning. In view of this I will discontinue her glimepiride and Metformin for now. She will continue the sliding scale insulin coverage. She can be restarted back on metformin if her blood sugars go up. 3. The patient is being transferred to the [facility] rehabilitation unit today. Problems: Consultation Date/Type/Reason Admit Date/Time Dec 14, 2016 at 10:13 Initial Consult Date 24 HR Interval Summary Free Text/Dictation She is now 3 days postop a right total knee arthroplasty. She is awake and alert. Constitutional: improved, no complaints Exam/Review of Systems Vital Signs Vitals Vital Signs Date Time Temp Pulse Resp B/P Pulse Ox O2 Delivery O2 Flow Rate FiO2 12/17/16 06:59 98.0 72 20 124/59 98 12/15/16 09:00 Nasal Cannula 2.0 Intake and Output 12/16/16 12/16/16 12/17/16 15:00 23:00 07:00 Intake Total 1300 ml 500 ml Balance 1300 ml 500 ml Exam Constitutional: alert, oriented, well developed Psych: nl mood/affect, no complaints Respiratory: clear to auscultation, normal air movement Cardiovascular: regular rate and rhythm Musculoskeletal: nl extremities to inspection Results Result Diagram: 12/17/16 0435 12/17/16 0435 Results 24 hrs Laboratory Tests Test 12/16/16 12:38 12/16/16 17:43 12/17/16 04:35 12/17/16 08:05 Bedside Glucose 133 94 71 Hemoglobin 9.2 L Hematocrit 28.3 L Sodium Level 139 Potassium Level 4.0 Chloride Level 104 Carbon Dioxide Level 31 Anion Gap 8 Blood Urea Nitrogen 22 H Creatinine 1.01 H Glucose Level 53 #L Calcium Level 9.1 Iron Level 17 L Total Iron Binding Capacity 209 L Percent Iron Saturation 8 L Ferritin 154.0 Test 12/17/16 08:51 Bedside Glucose 74 Medications Medications Current Medications Miscellaneous Information 1 ea NOTE XX ; Start 12/14/16 at 12:00; Stop 12/18/16 at 11:59 Prednisone (Prednisone) 3 mg DAILY PO Last administered on 12/17/16 08:53; Admin Dose 3 MG; Start 12/15/16 at 09:00 Atorvastatin Calcium 10 mg 10 mg DAILY@21 PO Last administered on 12/16/16 21: 15; Admin Dose 10 MG; Start 12/14/16 at 21:00 Lactated Ringer's (Lr) 1,000 ml @ 125 mls/hr Q8H IV Last administered on 08:58; Admin Dose 125 MLS/HR; Start 12/14/16 at 16:00 Tramadol HCl (Ultram) 50 mg Q6 PO Last administered on 12/17/16 05:55; Admin Dose 50 MG; Start 12/14/16 at 18:00; Stop 12/17/16 at 17:59 Acetaminophen/ Hydrocodone Bitart ([place] (5/325)) 1 tab Q4H PRN PO PAIN LEVEL 1 -3 Last administered on 12/16/16 12:00; Admin Dose 1 TAB; Start 12/14/16 at 16: 00 Acetaminophen/ Hydrocodone Bitart ([place] (5/325)) 2 tab Q4H PRN PO PAIN LEVEL 4 -7 Last administered on 12/17/16 06:50; Admin Dose 2 TAB; Start 12/14/16 at 16: 00 Hydromorphone HCl (Dilaudid) 1 mg Q3H PRN IV PAIN LEVEL 8-10; Start 12/14/16 at 16:00 Ondansetron HCl (Zofran Inj) 4 mg Q6H PRN IV NAUSEA AND/OR VOMITING; Start at 16:00 Bisacodyl (Dulcolax Supp) 10 mg Q12H PRN [place] CONSTIPATION; Start 12/14/16 at 16: 00 Magnesium Hydroxide (Milk Of Mag) 30 ml BID PRN PO CONSTIPATION Last administered on 12/16/16 21:15; Admin Dose 30 ML; Start 12/14/16 at 16:00 Sodium Biphosphate/ Sodium Phosphate (Fleet Enema) 133 ml DAILY PRN [place] CONSTIPATION; Start 12/14/16 at 16:00 Docusate Sodium (Colace) 100 mg BID PO Last administered on 12/17/16 08:52; Admin Dose 100 MG; Start 12/14/16 at 21:00 Diphenhydramine HCl (Benadryl) 25 mg Q6H PRN PO PRURITUS; Start 12/14/16 at 16: 00 Aspirin (Ecotrin) 325 mg BID PO Last administered on 12/17/16 08:52; Admin Dose 325 MG; Start 12/15/16 at 09:00 Pantoprazole (Protonix Tab) 40 mg BID@18 PO Last administered on 12/17/16 05:54; Admin Dose 40 MG; Start 12/14/16 at 18:00 Pregabalin (Lyrica) 50 mg BID PO Last administered on 12/17/16 08:53; Admin Dose 50 MG; Start 12/14/16 at 21:00 Miscellaneous Information 1 ea NOTE XX ; Start 12/16/16 at 06:30 Glucose (Glutose) 15 gm Q15M PRN PO DECREASED GLUCOSE; Start 12/16/16 at 06:30 Glucose (Glutose) 22.5 gm Q15M PRN PO DECREASED GLUCOSE; Start 12/16/16 at 06: 30 Dextrose (D50w Syringe) 25 ml Q15M PRN IV DECREASED GLUCOSE; Start 12/16/16 at 06:30 Dextrose (D50w Syringe) 50 ml Q15M PRN IV DECREASED GLUCOSE; Start 12/16/16 at 06:30 Glucagon (Glucagen) 1 mg Q15M PRN IM DECREASED GLUCOSE; Start 12/16/16 at 06:30 Glucose (Glutose) 15 gm Q15M PRN BUCCAL DECREASED GLUCOSE; Start 12/16/16 at 06 :30 RAYNA GAYLE MD Dec 17, 2016 09:56
[2016-12-17] MEDS: metFORMIN 500 MG TAB PO SCH (11:42)
--- NOTE | 2016-12-17 15:42 | DS ---
DATE OF ADMISSION: 12/14/2016 DATE OF DISCHARGE: 12/17/2016 CONDITION ON DISCHARGE: Stable. ADMITTING DIAGNOSIS: Right knee osteoarthritis. DISCHARGE DIAGNOSIS: Status post right total knee arthroplasty. PROCEDURE PERFORMED: Right total knee arthroplasty. HOSPITAL COURSE: This is a 71-year-old female who was seen in the clinic complaining of right knee pain. X-rays were done and demonstrated advanced osteoarthritis of the right knee and it was thought she would benefit of her right total knee arthroplasty. On 12/14/2016, the patient was admitted and taken to the operating room where she underwent a right total knee arthroplasty. There were no intraoperative complications. The patient tolerated the procedure well. She was taken to the recovery room in stable condition. Pain was well controlled with oral pain medication. She was started on aspirin and SCDs for DVT prophylaxis. She remained hemodynamically stable and neurovascularly intact throughout her hospital course. She began physical therapy on postoperative day 1 and continued to make progress. Ultimately on postop day #3, she was deemed stable for transfer to the [facility]. Prior to transfer, the incision was inspected and noted to be clean, dry and intact. Dressing changes were done prior to the patient being transferred. LABORATORY ANALYSIS: Hemoglobin 9.2, hematocrit 28.3. Chemistry panel was within normal limits. DISCHARGE MEDICATIONS: 1. [place] 5/325 2. Tramadol 50 mg. 3. Aspirin 325 mg. 4. Protonix 40 mg. In addition, the patient is to resume all of her normal home medication. DISCHARGE INSTRUCTIONS: The patient will be transferred to the [facility] in stable condition. She is to resume a normal diet. She is weightbearing as tolerated on the right lower extremity. She will begin physical therapy at the [facility]. She will be transferred with the medications noted above and is to resume all her normal home medication. The patient is to call the office or go to the emergency room for any concerns including increased redness, swelling , drainage or fever or any concern regarding the operation or site of incision. FOLLOWUP: The patient is to followup in the office on 12/24/2016. Dictated By: MINI ISSA for EDMUNDO HAWKINS/DAPHNE Conf#: [id number] DID#: [id number] [facility]ENT[facility]overto
== END 2016-12-17 13:32 | DRG 470 ==
LOC: REC 10:13 → MS1 19:55
PROVIDERS: ADMIT Orthopaedic Surgery; ATTEND Orthopaedic Surgery
PROC: 0SRC0J9 Replacement of Right Knee Joint with Synthetic Substitute, Cemented, Open Approach (ICD-10-PCS; principal; 2016-12-14 13:00)
DX: M17.11 Unilateral primary osteoarthritis, right knee (principal); E11.9 Type 2 diabetes mellitus without complications; D64.9 Anemia, unspecified; K21.9 Gastro-esophageal reflux disease without esophagitis; Z86.79 Personal history of other diseases of the circulatory system; Z87.440 Personal history of urinary (tract) infections; Z83.3 Family history of diabetes mellitus
CPT/HCPCS: 73560; 80048; 81001; 82728; 82962; 83540; 83735; 84100; 85014; 85018; 86850; 86900; 86901; 86920; 87081; 87086; 88304; 88311; 97110; 97116; 97162; 97166; 97530; C1776; J0690; J1100; J1815; J2175; J2250; J2405; J2710; J3010; J3370; J7120; J7512

== ENCOUNTER → 2016-12-23 | Outpatient (CLI) | payer MEDICARE, BC ==
[~2016-12-23] MED LIST changes: +ASPI325T32 PO; -ETOMIDATE 20 MG INJ ONE; +GLIM4TAB PO; +LEVO25TA50 PO; +METF500T4 PO; +PANT40TA4 PO; +PRAV40TA76 PO; +PRED1TAB2 PO; +PREG50CA PO; -PROPOFOL 1000 MG INJ ONE; +TRAM50TA2 PO
--- NOTE | 2016-12-23 10:43 | HKNOTE ---
DATE OF SERVICE: 12/23/2016 INTERVAL HISTORY: The patient presents today for her first postoperative evaluation on her right knee. She is 9 days status post right total knee arthroplasty. She is at the [facility]. She is doing very well overall. She denies any significant pain. She states she is progressing well with physical therapy. She is currently on aspirin twice daily for DVT prophylaxis. She denies any fevers or chills. She presents today for her first postoperative evaluation. PHYSICAL EXAMINATION: Today, she is alert and oriented x4 and in no acute distress. Exam of incision demonstrates it to be clean, dry and intact. [place] are in place. Range of motion is 0 to 70 degrees. There is no erythema or warmth noted. Varus and valgus forces are stable. Homans sign is negative. Compartments are soft. She is neurovascularly intact distally. IMAGING: X-rays of the right knee were obtained today and reviewed by me. They demonstrate good anatomic alignment with no fractures or dislocations identified. ASSESSMENT: Nine days status post right total knee arthroplasty. PLAN: The tea were removed today and Steri-Strips were applied. She is to continue aspirin 325 mg twice daily for DVT prophylaxis. Additionally, she is to continue physical therapy at the [facility] and begin discharge planning. We will see her back in 4 weeks for repeat evaluation. She is to call the office in the meantime she has any concerns. Dictated By: MINI ISSA for EDMUNDO HAWKINS/DAPHNE Conf#: [id number] DID#: [id number] ELISHA
--- NOTE | 2016-12-23 16:20 | RADRPT ---
PROCEDURE: Right knee radiographs. CLINICAL INDICATION: Right knee pain. Postop. TECHNIQUE: Two views. Frontal and lateral. COMPARISON: 12/14/2016. FINDINGS: There is no fracture or dislocation. Anterior skin tea and surgical drain have been removed. There is a total right knee arthroplasty which appears satisfactory. There is no lytic or blastic lesion. There is no joint effusion. IMPRESSION: 1. Satisfactory postoperative appearance of the right knee. RPTAT: QQ .Jose Cruz Rangel MD, MD Date Time Electronically viewed and signed by .Jose Cruz Rangel MD, MD on 12/23/2016 16:20 .R/
== END | disposition home or self-care (01) ==
LOC: HKI 09:41
PROVIDERS: ATTEND Orthopaedic Surgery
DX: Z47.1 Aftercare following joint replacement surgery (principal); Z96.651 Presence of right artificial knee joint

== ENCOUNTER → 2017-01-19 | Outpatient (CLI) | payer MEDICARE, BC | END | disposition home or self-care (01) | LOC: HKI 11:05 | PROVIDERS: ATTEND Orthopaedic Surgery | DX: Z47.1 Aftercare following joint replacement surgery (principal); M17.11 Unilateral primary osteoarthritis, right knee; Z96.651 Presence of right artificial knee joint ==

== ENCOUNTER → 2017-02-25 | Outpatient (CLI) | payer MEDICARE, BC ==
--- NOTE | 2017-02-25 16:14 | RADRPT ---
PROCEDURE: Right knee radiographs. CLINICAL INDICATION: Right knee pain. Postop. TECHNIQUE: Three views. Weight bearing. Frontal, lateral, and patellar view. COMPARISON: 12/23/2016. FINDINGS: There is no fracture or dislocation. The soft tissues are normal. There is a total right knee arthroplasty which appears satisfactory. There is no lytic or blastic lesion. IMPRESSION: 1. Satisfactory postoperative appearance of the right knee. 2. No change from 12/23/2016. RPTAT: QQ .Jose Cruz Rangel MD, MD Date Time Electronically viewed and signed by .Jose Cruz Rangel MD, MD on 02/25/2017 16:14 .R/
== END | disposition home or self-care (01) ==
LOC: HKI 11:11
PROVIDERS: ATTEND Orthopaedic Surgery
DX: M17.11 Unilateral primary osteoarthritis, right knee (principal); Z09 Encounter for follow-up examination after completed treatment for conditions other than malignant neoplasm; Z96.651 Presence of right artificial knee joint
CPT/HCPCS: 73562; G0463

== ENCOUNTER → 2017-06-21 | Outpatient (CLI) | payer MEDICARE, BC ==
--- NOTE | 2017-06-21 17:26 | CONS ---
Date/Time of Note Date/Time of Note DATE: 06/21/17 TIME: 17:10 Assessment/Plan Assessment/Plan Additional Assessment/Plan Assessment: 71-year-old female 6 months status post right total knee arthroplasty. Overall she is doing well with no signs of infection or complication. She does however continue to have knee pain which limits her daily activities and function. We had a long discussion that soft tissues take time to heal and that we do see improvement in patients for up to a year after surgery. We also discussed that some patients continue to have pain indefinitely after total knee arthroplasty for no known reason while others may have continued synovitis after surgery. Plan: Physical therapy for continued strengthening of right lower extremity and to optimize gait mechanics. Meloxicam 7.5 mg daily for 1 month to decrease inflammation of the right knee Follow-up in 3 months. If the patient is doing well with no symptoms she may postpone that appointment for her annual follow-up in December. Consultation Date/Type/Reason Admit Date/Time Date of Consultation: Jun 21, 2017 Reason for Consultation To establish postsurgical follow-up status post right total knee arthroplasty by Dr. Tarango Hx of Present Illness Ms. Wisdom is a 71-year-old female who is 6 months status post right total knee arthroplasty by Dr. Tarango. Overall she has had an uneventful postoperative course. However she has continued to have both medial and lateral side knee pain and feels as if she has plateaued over the last few months. She denies any significant swelling. denies erythema, fevers, chills. She has most pain when standing for long periods of time or walking. She denies any injury postoperatively. Denies any numbness or tingling. She describes her pain as throbbing and 4/10. She does not limp or require any gait aids. Past Medical History Medical History: diabetes Past Surgical History Right total knee arthroplasty Family History Significant Family History: diabetes Social History Alcohol Use: none Smoking Status: Never smoker Drug Use: none Exam/Review of Systems Vital Signs Vitals Weight: 155 lbs Height: 5 feet 5 inches Temperature: 98.6 Heart Rate: 68 Blood Pressure: 126/59 Respiratory Rate: 12 Exam General: Alert, oriented x3. No Acute Distress. Heart: Regular rate and rhythm. Lungs: No respiratory distress. No accessory muscle use. Musculoskeletal: Right Knee Midline incision is well-healed. No erythema, +1 effusion, no warmth. Tenderness to palpation along the medial and lateral joint lines. Range of motion is 0 to greater than 120 of flexion The knee is stable to varus and valgus stress at 0 and throughout range of motion. The knee is stable in the AP plane and flexion. Sensation intact to light touch along the sural, saphenous, superficial peroneal nerve, deep peroneal nerve, plantar nerves. Motor is intact to the tibialis anterior, gastrocnemius, EHL, FHL. 2+ dorsalis pedis pulse Imaging Free Text/Dictation Right knee x-rays were obtained in clinic today. They are personally reviewed today. Right knee bilateral AP, merchant view, and dedicated lateral view were obtained. The right knee is status post total knee arthroplasty. The femoral, tibial, and patellar components are well fixed and in good alignment and position. There are no fractures. There are no signs of loosening, osteolysis , wear, or other complications. SANDY ERAZO MD Jun 21, 2017 17:22
--- NOTE | 2017-06-22 13:18 | RADRPT ---
PROCEDURE: Bilateral knee series CLINICAL INDICATION: Pain TECHNIQUE: PA axial weightbearing, AP weightbearing, lateral and sunrise views were obtained of the right and left knees. COMPARISON: Right knee series 02/25/2017 FINDINGS: There is a total right knee prosthesis in place without evidence of dislocation or loosening. No carmela dence of acute fractures bilaterally. No evidence of left knee joint malalignment. There is mild to moderate degenerate joint disease left knee. The bony mineralization is normal without focal bony bl astic or lytic lesions. Bilateral small knee joint effusions. Soft tissues are otherwise unremarkabl e. IMPRESSION: 1. Unremarkable right knee prosthesis. 2. Bilateral small knee joint effusions. 3. 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 4. No evidence acute fractures or malalignment. RPTAT:AAJJ Physician Rima Date Time Electronically viewed and signed by Physician Rima on 06/22/2017 13:18 BM/
== END | disposition home or self-care (01) ==
LOC: HKI 14:26
PROVIDERS: ATTEND Orthopaedic Surgery Adult Reconstructive Orthopaedic Surgery
DX: Z47.1 Aftercare following joint replacement surgery (principal); Z96.652 Presence of left artificial knee joint
CPT/HCPCS: 73564; G0463

== ENCOUNTER → 2018-04-27 | Outpatient (CLI) | END | disposition home or self-care (01) ==

== ENCOUNTER → 2018-09-04 | Outpatient (CLI) | payer MEDICARE, BC ==
[~2018-09-04] MED LIST changes: +METF500T24 PO; -METF500T4 PO
--- NOTE | 2018-09-04 11:45 | PN ---
Date/Time of Note Date/Time of Note DATE: 09/04/18 TIME: 11:38 Assessment/Plan VTE Prophylaxis Pharmacological prophylaxis: other Assessment/Plan Assessment/Plan 73-year-old female who is 1-1/2 years status post right total knee replacement. She has residual persistent medial right knee pain. The patient does have quadriceps atrophy. There is no evidence of infection or loosening of the impl ant. At this time further physical therapy is recommended for strengthening of the right lower extremity. She may use local creams and medications as needed. Follow-up as needed Subjective 24 Hr Interval Summary Free Text/Dictation Glendy is a 73-year-old female who is here for evaluation of right knee pain. The patient had a right total knee replacement about 1-1/2 years ago. She continues to have pain on the medial aspect of the right knee. There is no history of trauma. There is no history of fever or chills. The pain occurs with weightbearing activities. There is no radiation of pain, no tingling or numbness. The patient is concerned and is here for further management Additional Comments Past history is significant for diabetes, temporal arteritis Medications include metformin, anti-inflammatory medications Allergies none Review of systems is positive for right knee pain negative for chest pain or shortness of breath Exam/Review of Systems Exam Vitals Vital signs are stable, blood pressure 132/60, temperature 98.2, pulse rate 80, respiration 14 Exam Examination shows a pleasant but anxious female. She is awake alert and oriented. She walks without a limp. The right knee incision is well-healed. Alignment is satisfactory. There is significant tenderness over the medial aspect of the knee. The medial femoral condyle and medial aspect of the upper tibia are tender. Range of motion is 0-120. The knee is stable. There is no neurovascular deficit. Mild quadriceps atrophy is noted. X-rays of the right knee were done today and show a well fixed total knee replacement in good alignment ISIDRA STANLEY Sep 04, 2018 11:45
--- NOTE | 2018-09-05 18:26 | RADRPT ---
PROCEDURE: Right knee radiographs. CLINICAL INDICATION: Right knee pain. Postop. TECHNIQUE: Two views. Frontal and lateral. COMPARISON: 06/21/2017 FINDINGS: There is no fracture or dislocation. There is a small joint effusion. There is a total right knee arthroplasty which appears satisfactory. There is no lytic or blastic lesion. IMPRESSION: 1. Small joint effusion. 2. Otherwise unremarkable postoperative appearance of the right knee. RPTAT: QQ .Jose Cruz Rangel MD, MD Date Time Electronically viewed and signed by .Jose Cruz Rangel MD, on 09/05/2018 18:26 .R/
== END | disposition home or self-care (01) ==
LOC: HKI 11:52
PROVIDERS: ATTEND Orthopaedic Surgery
DX: M25.561 Pain in right knee (principal); E11.8 Type 2 diabetes mellitus with unspecified complications; Z79.84 Long term (current) use of oral hypoglycemic drugs; M31.6 Other giant cell arteritis; Z96.651 Presence of right artificial knee joint
CPT/HCPCS: 73560; G0463